=== PATIENT | female | born 1935 | race Asian ===

== ENCOUNTER → 2018-05-06 | Outpatient (CLI) | payer OTHER ==
[~2018-05-06] MED LIST: ACETAMINOPHEN325 M1 PO; ALBUTEROL2.5 MG/0.1 INH; ALENDRONATE SODI5 MG PO; AMBIEN 5 MG TABL5 M1 PO; ARICEPT 5 MG TAB5 MG PO; CELEBREX 200 M200 M1 PO; FELODIPINE 5 MG5 M1 PO; FELODIPINE ER5 MG PO; FLOXIN OTI0.3 %/5 M1 OT; FOLIC ACID 40400 MC1; FOLIC ACID 40400 MC1 PO; FOSAMAX 70 MG T70 M1 PO; GLIPIZIDE XL2.5 MG PO; GLUCOTROL5 MG PO; LISINOPRIL40 MG PO; METHOCARBAMOL500 M1 PO; MOBIC7.5 MG PO; MULTIVITAMINS1 EAC7 PO; NORCO 5-325 TA1 EACH PO; NORTRIPTYLINE H50 MG PO; SEROQUEL 25 MG25 M1 PO; TRICOR145 MG PO; ULTRAM 50MG TAB50 MG PO; VENTOLIN HFA 1818 GM INH; VITAMIN D-32000 UNIT PO; ZOCOR 20 MG TAB20 M1 PO; ZOCOR40 MG PO; [UNRECOGNIZED DRUG - OTHER] PO
== END ==
LOC: CAT 15:46
DX: J98.11 Atelectasis (principal); I25.10 Atherosclerotic heart disease of native coronary artery without angina pectoris; R91.8 Other nonspecific abnormal finding of lung field

== ENCOUNTER → 2018-05-31 | Outpatient (CLI) | payer OTHER | LOC: PET 05-17 11:27 | DX: C34.90 Malignant neoplasm of unspecified part of unspecified bronchus or lung (principal); K80.50 Calculus of bile duct without cholangitis or cholecystitis without obstruction; N20.0 Calculus of kidney; N28.89 Other specified disorders of kidney and ureter; R91.8 Other nonspecific abnormal finding of lung field ==

== ENCOUNTER 2019-10-03 09:24 | Emergency (ER) | payer OTHER ==
[~2019-10-03] VITALS: Ht 152.4 cm; Wt 41.7 kg
[2019-10-03 10:10] LABS: ABSOLUTE NEUTROPHILS 5.5 thou/uL (1.4-8.2); BASOPHILS 0.9 % (0.0-2.0); EOSINOPHILS 1.7 % (0.0-3.0); HEMATOCRIT 37.3 % (37.0-47.0); HEMOGLOBIN 11.8 gm/dL (12.0-15.0); LYMPHOCYTES 23.4 % (24.0-44.0); MCH 30.5 pg (26.0-34.0); MCHC 31.7 g/dL (28.0-37.0); MCV 96.3 fL (80.0-100.0); MONOCYTES 6.1 % (1.0-8.0); PLATELET COUNT 207 thou/uL (150-400); POLYS 67.9 % (36.0-66.0); RBC 3.87 mil/uL (4.20-5.00); WBC 8.1 thou/uL (4.0-11.0)
[2019-10-03] MEDS ORDERED: AUGMENTIN 875-1 EACH PO (10:23)
[2019-10-03] MEDS ORDERED: ENSURE LIQUID237 M1 PO (10:24)
[2019-10-03] MEDS ORDERED: MUCINEX600 MG PO (10:25)
[2019-10-03] MEDS ORDERED: MIRTAZAPINE7.5 MG PO (10:25)
[2019-10-03 10:26] LABS: ANION GAP 7 mmol/L (7-16); BUN 26 mg/dL (7-18); CALCIUM 10.3 mg/dL (8.5-10.1); CHLORIDE 102 mmol/L (98-107); CO2 25 mmol/L (21-32); CREATININE 1.7 mg/dL (0.6-1.0); GLUCOSE 156 mg/dL (74-106); POTASSIUM 4.3 mmol/L (3.5-5.1); SODIUM 134 mmol/L (136-145)
[2019-10-03] MEDS ORDERED: SPIRIVA18 MCG INH (10:26)
[2019-10-03] MEDS ORDERED: LOPERAMIDE 2 MG2 M1 PO (10:26)
[2019-10-03] MEDS ORDERED: MIRALAX119 GM PO (10:27)
[2019-10-03 10:36] LABS: ALBUMIN 3.3 g/dL (3.4-5.0); SGOT 36 U/L (15-37); SGPT 17 U/L (30-65); TOTAL BILIRUBIN 0.6 mg/dL (<0.1-1.0); TOTAL PROTEIN 6.9 g/dL (6.4-8.2); TROPONIN-I <0.06 ng/mL (<0.06)
[2019-10-03 14:15] VITALS: BP 143/60
--- NOTE | 2019-10-03 15:44 | EKG ---
[place] [address] [employer] [place] [address] ELECTROCARDIOGRAM REPORT Name: JEAN LEPE [id number] Admission: 10/03/19 Attend Phys: Discharge: 10/03/19 Date of : 31 Report #: [id number] THIS REPORT FOR: //name// [facility] ED Test Date: 2019-10-03 Test Time: 09:33:46 Pat Name: JEAN LEPE Department: Room: Gender: F Exhibit Builder: TEOFILO : 1935 Requested By: Akil Bassett Order Number: [id number] MD: Ruddy Bender Measurements Intervals [place] Rate: 76 P: 67 DC: 131 QRS: 34 QRSD: 96 T: 263 QT: 341 QTc: 384 Interpretive Statements Sinus rhythm Multiple premature complexes, vent & supraven Borderline repolarization abnormality Compared to ECG 12/04/2014 15:02:37 Ventricular and supraventricular complexes are now present Electronically Signed On 10-03-2019 15:43:52 [employer] by Ruddy Bender [email or web address] <ELECTRONICALLY SIGNED> By: Ruddy Bender MD, [facility] 10/03/19 1543 2 2 Ruddy Bender MD, FACC /EPI
== END 2019-10-03 14:39 | disposition short-term general hospital (02) ==
LOC: ER 09:24
PROVIDERS: Emergency Medicine
DX: G93.9 Disorder of brain, unspecified (principal); R41.82 Altered mental status, unspecified; R53.1 Weakness; I12.9 Hypertensive chronic kidney disease with stage 1 through stage 4 chronic kidney disease, or unspecified chronic kidney disease; E11.22 Type 2 diabetes mellitus with diabetic chronic kidney disease; N18.3 Chronic kidney disease, stage 3 (moderate); M81.0 Age-related osteoporosis without current pathological fracture; F03.90 Unspecified dementia, unspecified severity, without behavioral disturbance, psychotic disturbance, mood disturbance, and anxiety; F17.210 Nicotine dependence, cigarettes, uncomplicated; Z90.49 Acquired absence of other specified parts of digestive tract